=== PATIENT | female | born 1995 | race Asian ===

== ENCOUNTER 2024-06-02 18:54 | Emergency (ER) | payer OTHER ==
[~2024-06-02] VITALS: Ht 154.9 cm; Wt 66.7 kg
[2024-06-02 19:01] VITALS: PULSE 67; RESP 18; TEMP 97.6
[2024-06-02] MEDS: METOCLOPRAMIDE HCL 10 MG/2ML VIAL IV ONE (20:04)
[2024-06-02 20:39] VITALS: BP 109/68; PULSE 67; RESP 18; TEMP 97.6; O2SAT 98
== END 2024-06-02 20:39 | disposition home or self-care (01) ==
LOC: FSED 18:59
DX: R51.9 Headache, unspecified (principal)
CPT/HCPCS: 70450; 99283; J2765